=== PATIENT | female | born 1960 | race Caucasian/White ===

== ENCOUNTER → 2016-10-09 | Outpatient (CLI) | payer OTHER ==
[~2016-10-09] MED LIST: ALPRAZOLAM0.5 MG PO; AMOXICILLIN875 MG PO; AUGMENTIN TAB875 MG PO; COMPAZINE10 MG PO; DURAGESIC 25 MCG1 EA TD; ENSURE ORIGINA237 ML PO; HYDROCHLOROTHIA25 MG PO; LORTAB 7.5-3251 EACH PO; TUSSIN100 MG/5 M PO; VENTOLIN HFA 66.7 GM INH; ZYRTEC10 M3 PO
== END ==
LOC: KOH-I 10-07 08:30
DX: R22.2 Localized swelling, mass and lump, trunk (principal); C78.00 Secondary malignant neoplasm of unspecified lung
CPT/HCPCS: 71260; Q9962

== ENCOUNTER → 2016-10-15 | Outpatient (CLI) | payer OTHER | LOC: HEART 5 14:00 | DX: R06.02 Shortness of breath (principal) | CPT/HCPCS: 94060; 94729 ==

== ENCOUNTER → 2016-10-28 | Day surgery (SDC) | payer OTHER | END | disposition home or self-care (01) | LOC: OR 06:16 | PROVIDERS: Internal Medicine Pulmonary Disease | PROC: 0BB78ZX Excision of Left Main Bronchus, Via Natural or Artificial Opening Endoscopic, Diagnostic (ICD-10-PCS; 2016-10-28) | PROC: 0BB78ZX Excision of Left Main Bronchus, Via Natural or Artificial Opening Endoscopic, Diagnostic (ICD-10-PCS; 2016-10-28) | PROC: 0B978ZX Drainage of Left Main Bronchus, Via Natural or Artificial Opening Endoscopic, Diagnostic (ICD-10-PCS; principal; 2016-10-28 07:30) | DX: R91.1 Solitary pulmonary nodule (principal); I10 Essential (primary) hypertension; Z79.899 Other long term (current) drug therapy; Z90.710 Acquired absence of both cervix and uterus | CPT/HCPCS: 76000; J7120 ==

== ENCOUNTER → 2016-11-27 | Outpatient (CLI) | payer OTHER | LOC: OPSV 11:00 | DX: R91.8 Other nonspecific abnormal finding of lung field (principal) ==

== ENCOUNTER → 2016-12-04 | Outpatient (CLI) | payer OTHER | LOC: MRI 08:58 | DX: R91.8 Other nonspecific abnormal finding of lung field (principal); R93.0 Abnormal findings on diagnostic imaging of skull and head, not elsewhere classified | CPT/HCPCS: 70553; A9577 ==